=== PATIENT | female | born 1955 | race Caucasian/White ===

== ENCOUNTER 2017-10-24 15:09 | Inpatient (IN) | payer SELFPAY ==
[2017-10-24 15:42] LABS: ADD MAN DIFF? NO
[2017-10-24 15:47] LABS: WHITE BLOOD COUNT 6.9 10^3/ul (4.8-10.8)
[2017-10-24 15:47] LABS: BASOPHILS % 0.3 % (0.0-2.0); HEMOGLOBIN 13.5 g/dl (12.0-16.0); LYMPHOCYTES # 0.9 10^3/ul (0.8-2.9); LYMPHOCYTES % 12.4 % (15.0-51.0); MEAN CORPUSCULAR HEMOGLOBIN 30.7 pg (29.0-33.0); MEAN CORPUSCULAR HGB CONC 35.5 g/dl (32.0-37.0); MEAN CORPUSCULAR VOLUME 86.4 fl (82.0-101.0); MEAN PLATELET VOLUME 10.2 fl (7.4-10.4); MONOCYTE # 0.4 10^3/ul (0.3-0.9); MONOCYTES % 5.1 % (0.0-11.0); NEUTROPHIL # 5.7 10^3/ul (1.6-7.5); NEUTROPHILS % 81.8 % (39.0-77.0); PLATELET COUNT 204 10^3/UL (140-415)
[2017-10-24 16:04] LABS: ALANINE AMINOTRANSFERASE 34 IU/L (13-69); ALBUMIN 4.4 g/dl (3.3-4.9); ALBUMIN/GLOBULIN RATIO 1.41; ALKALINE PHOSPHATASE 76 IU/L (42-121); ANION GAP 17 (8-16); ASPARTATE AMINO TRANSFERASE 24 IU/L (15-46); BILIRUBIN,INDIRECT 0.6 mg/dl (0-1.1); BILIRUBIN,TOTAL 0.6 mg/dl (0.2-1.3); BLOOD UREA NITROGEN 15 mg/dl (7-20); CALCIUM 10.1 mg/dl (8.4-10.2); CARBON DIOXIDE 22 mmol/L (21-31); CHLORIDE 93 mmol/L (97-110); GLUCOSE 110 mg/dl (70-220); POTASSIUM 3.7 mmol/L (3.5-5.1); SODIUM 128 mmol/L (135-144); TOTAL PROTEIN 7.5 g/dl (6.1-8.1)
[2017-10-24 16:05] LABS: INR 0.98; PROTIME 13.1 Sec (11.9-14.9)
[2017-10-24 16:06] LABS: AMMONIA < 9 umol/l (9-30)
[2017-10-24 16:06] LABS: ETHANOL < 10.0 mg/dl; PARTIAL THROMBOPLASTIN TIME 34.4 Sec (25.0-35.0)
[2017-10-24 16:33] LABS: FREE THYROXINE INDEX (Calc) 4.48 ug/ml (0.65-3.89)
[2017-10-24 16:44] LABS: T3 UPTAKE 37.3 % (23.5-40.5)
[2017-10-24 16:46] LABS: TROPONIN-I < 0.012 ng/ml (0.00-0.12)
[2017-10-24] MEDS: ONDANSETRON 4 MG INJ IV (18:23)
[2017-10-24] MEDS ORDERED: ONDANSETRON 4 MG INJ IV ×2 (19:00→20:30)
[2017-10-24 19:42] LABS: ADD UMIC NO; UR ASCORBIC ACID NEGATIVE (NEGATIVE); UR BILIRUBIN (Dip) NEGATIVE (NEGATIVE); UR BLOOD (Dip) NEGATIVE (NEGATIVE); UR CLARITY CLEAR (CLEAR); UR COLOR YELLOW (YELLOW); UR GLUCOSE (Dip) NEGATIVE (NEGATIVE); UR KETONES (Dip) 2+ mg/dL (NEGATIVE); UR LEUKOCYTE ESTERASE (Dip) NEGATIVE Leu/ul (NEGATIVE); UR NITRITE (Dip) NEGATIVE (NEGATIVE); UR SPECIFIC GRAVITY (Dip) 1.046 (1.003-1.030); UR TOTAL PROTEIN (Dip) NEGATIVE (NEGATIVE); UR UROBILINOGEN (Dip) NEGATIVE (NEGATIVE)
[2017-10-24 20:00] LABS: BARBITURATES Positive (NEGATIVE)
[2017-10-24 20:02] LABS: AMPHETAMINE/METHAMPHETAMINE Negative (NEGATIVE); BENZODIAZEPINES Negative (NEGATIVE); CANNABINOIDS Negative (NEGATIVE); COCAINE Negative (NEGATIVE); OPIATES Negative (NEGATIVE)
[2017-10-24 20:06] LABS: SODIUM,URINE RANDOM 100 mmol/L (30-90)
[2017-10-24] MEDS ORDERED: NACL 0.9% 3 ML SYG IV (20:30)
[2017-10-24] MEDS ORDERED: ACETAMINOPHEN 325 MG TAB PO (20:30)
[2017-10-24] MEDS: SOD CHLORIDE 0.9% 1,000 ML IV (21:44)
[2017-10-24] MEDS: SOD CHLORIDE 0.9% 100 ML (21:45)
[2017-10-24] MEDS: IOHEXOL 100 ML (21:45)
[2017-10-24 22:41] LABS: OSMOLALITY,URINE 692 mOsm/kg (250-1200)
[2017-10-24 23:04] LABS: OSMOLALITY 265 mOsm/kg (280-295)
[2017-10-25] MEDS: ACETAMINOPHEN 325 MG TAB PO (01:21)
[2017-10-25] MEDS: SOD CHLORIDE 0.9% 1,000 ML IV ×2 (08:30→13:38)
[2017-10-25 08:52] LABS: ADD MAN DIFF? NO
[2017-10-25] MEDS: VALSARTAN 80 MG TAB PO (08:53)
[2017-10-25 08:59] LABS: WHITE BLOOD COUNT 4.5 10^3/ul (4.8-10.8)
[2017-10-25 08:59] LABS: BASOPHILS % 0.2 % (0.0-2.0); EOSINOPHILS % 0.4 % (0.0-7.0); HEMATOCRIT 35.9 % (37.0-47.0); HEMOGLOBIN 12.5 g/dl (12.0-16.0); LYMPHOCYTES # 1.3 10^3/ul (0.8-2.9); LYMPHOCYTES % 29.9 % (15.0-51.0); MEAN CORPUSCULAR HEMOGLOBIN 30.3 pg (29.0-33.0); MEAN CORPUSCULAR HGB CONC 34.8 g/dl (32.0-37.0); MEAN CORPUSCULAR VOLUME 87.1 fl (82.0-101.0); MEAN PLATELET VOLUME 10.7 fl (7.4-10.4); MONOCYTE # 0.5 10^3/ul (0.3-0.9); MONOCYTES % 10.5 % (0.0-11.0); NEUTROPHIL # 2.6 10^3/ul (1.6-7.5); NEUTROPHILS % 58.8 % (39.0-77.0); PLATELET COUNT 197 10^3/UL (140-415); RED BLOOD COUNT 4.12 10^6/ul (4.20-5.40); RED CELL DISTRIBUTION WIDTH 12.6 % (11.5-14.5)
[2017-10-25 10:10] LABS: ALANINE AMINOTRANSFERASE 27 IU/L (13-69); ALBUMIN 3.8 g/dl (3.3-4.9); ALBUMIN/GLOBULIN RATIO 1.15; ALKALINE PHOSPHATASE 59 IU/L (42-121); ANION GAP 13 (8-16); ASPARTATE AMINO TRANSFERASE 22 IU/L (15-46); BILIRUBIN,INDIRECT 0.6 mg/dl (0-1.1); BILIRUBIN,TOTAL 0.6 mg/dl (0.2-1.3); BLOOD UREA NITROGEN 13 mg/dl (7-20); CALCIUM 9.6 mg/dl (8.4-10.2); CARBON DIOXIDE 27 mmol/L (21-31); CHLORIDE 97 mmol/L (97-110); CHOL/HDL RATIO 4.5 RATIO; CHOLESTEROL 228 mg/dl (100-200); GLUCOSE 94 mg/dl (70-220); HDL CHOLESTEROL 50 mg/dl (35-98); LDL CHOLESTEROL,CALCULATED 165 mg/dl; POTASSIUM 3.4 mmol/L (3.5-5.1); SODIUM 134 mmol/L (135-144); TOTAL PROTEIN 7.1 g/dl (6.1-8.1); TRIGLYCERIDES 67 mg/dl (0-149)
[2017-10-25 10:16] LABS: FREE T4 (FREE THYROXINE) 1.09 ng/dl (0.78-2.44)
[2017-10-25 11:35] LABS: HEMOGLOBIN A1C 5.2 % (0-5.9)
[2017-10-25] MEDS: POTASSIUM CHLORIDE (SR) 10 MEQ TAB PO (16:47)
[2017-10-26] MEDS: SOD CHLORIDE 0.9% 1,000 ML IV (06:40)
[2017-10-26 06:43] LABS: ADD MAN DIFF? NO
[2017-10-26 06:52] LABS: BASOPHILS % 0.3 % (0.0-2.0); EOSINOPHILS # 0.1 10^3/ul (0.0-0.5); EOSINOPHILS % 1.5 % (0.0-7.0); HEMATOCRIT 36.4 % (37.0-47.0); HEMOGLOBIN 12.3 g/dl (12.0-16.0); LYMPHOCYTES # 1.5 10^3/ul (0.8-2.9); LYMPHOCYTES % 42.8 % (15.0-51.0); MEAN CORPUSCULAR HEMOGLOBIN 30.7 pg (29.0-33.0); MEAN CORPUSCULAR HGB CONC 33.8 g/dl (32.0-37.0); MEAN CORPUSCULAR VOLUME 90.8 fl (82.0-101.0); MEAN PLATELET VOLUME 10.6 fl (7.4-10.4); MONOCYTE # 0.4 10^3/ul (0.3-0.9); MONOCYTES % 11.7 % (0.0-11.0); NEUTROPHIL # 1.5 10^3/ul (1.6-7.5); NEUTROPHILS % 43.4 % (39.0-77.0); PLATELET COUNT 178 10^3/UL (140-415); RED BLOOD COUNT 4.01 10^6/ul (4.20-5.40); RED CELL DISTRIBUTION WIDTH 12.7 % (11.5-14.5)
[2017-10-26 06:52] LABS: WHITE BLOOD COUNT 3.4 10^3/ul (4.8-10.8)
[2017-10-26 07:24] LABS: ANION GAP 9 (8-16); BLOOD UREA NITROGEN 14 mg/dl (7-20); CALCIUM 9.3 mg/dl (8.4-10.2); CARBON DIOXIDE 29 mmol/L (21-31); CHLORIDE 106 mmol/L (97-110); CREATININE 0.78 mg/dl (0.44-1.00); GLUCOSE 79 mg/dl (70-220); POTASSIUM 4.1 mmol/L (3.5-5.1); SODIUM 140 mmol/L (135-144)
[2017-10-26 07:42] LABS: PHOSPHORUS 3.1 mg/dl (2.5-4.9)
[2017-10-26 07:42] LABS: MAGNESIUM 2.3 mg/dl (1.7-2.5)
[2017-10-26] MEDS: VALSARTAN 80 MG TAB PO (08:12)
[2017-10-26] MEDS: INFLUENZA VIRUS VACCINE 0.5 ML (DISPENSING) IM* (09:00)
[2017-10-26] MEDS ORDERED: hydrALAzine 20 MG INJ IV (21:00)
[2017-10-27 06:36] LABS: ADD MAN DIFF? NO
[2017-10-27 06:44] LABS: BASOPHILS % 0.8 % (0.0-2.0); EOSINOPHILS # 0.1 10^3/ul (0.0-0.5); EOSINOPHILS % 1.6 % (0.0-7.0); HEMATOCRIT 35.6 % (37.0-47.0); HEMOGLOBIN 12.2 g/dl (12.0-16.0); LYMPHOCYTES # 1.5 10^3/ul (0.8-2.9); LYMPHOCYTES % 40.5 % (15.0-51.0); MEAN CORPUSCULAR HGB CONC 34.3 g/dl (32.0-37.0); MEAN CORPUSCULAR VOLUME 90.6 fl (82.0-101.0); MEAN PLATELET VOLUME 10.6 fl (7.4-10.4); MONOCYTE # 0.4 10^3/ul (0.3-0.9); MONOCYTES % 10.3 % (0.0-11.0); NEUTROPHIL # 1.7 10^3/ul (1.6-7.5); NEUTROPHILS % 46.5 % (39.0-77.0); PLATELET COUNT 174 10^3/UL (140-415); RED BLOOD COUNT 3.93 10^6/ul (4.20-5.40); RED CELL DISTRIBUTION WIDTH 12.4 % (11.5-14.5)
[2017-10-27 06:44] LABS: WHITE BLOOD COUNT 3.7 10^3/ul (4.8-10.8)
[2017-10-27 07:13] LABS: ANION GAP 15 (8-16); BLOOD UREA NITROGEN 13 mg/dl (7-20); CALCIUM 9.6 mg/dl (8.4-10.2); CARBON DIOXIDE 28 mmol/L (21-31); CHLORIDE 105 mmol/L (97-110); CREATININE 0.71 mg/dl (0.44-1.00); GLUCOSE 84 mg/dl (70-220); POTASSIUM 3.9 mmol/L (3.5-5.1); SODIUM 144 mmol/L (135-144)
[2017-10-27 07:14] LABS: MAGNESIUM 2.4 mg/dl (1.7-2.5)
[2017-10-27 07:14] LABS: PHOSPHORUS 3.4 mg/dl (2.5-4.9)
[2017-10-27] MEDS: ASPIRIN (EC) 81 MG TAB PO (08:17)
[2017-10-27] MEDS: VALSARTAN 80 MG TAB PO (08:17)
[2017-10-27] MEDS ORDERED: ATORVASTATIN 80 MG TAB PO (21:00)
== END 2017-10-27 13:32 | disposition home or self-care (01) | DRG 92 ==
LOC: TEL 18:49 → E/R 15:09
DX: G92 Toxic encephalopathy (principal); E87.1 Hypo-osmolality and hyponatremia; I67.1 Cerebral aneurysm, nonruptured; G45.9 Transient cerebral ischemic attack, unspecified; E86.0 Dehydration; E78.5 Hyperlipidemia, unspecified; F41.9 Anxiety disorder, unspecified; I10 Essential (primary) hypertension
CPT/HCPCS: 36415; 70450; 70496; 70498; 70544; 70551; 71045; 80048; 80053; 80061; 80306; 80307; 81003; 82140; 82962; 83036; 83735; 83930; 83935; 84100; 84300; 84436; 84439; 84443; 84479; 84481; 84484; 85025; 85610; 85730; 90686; 92610; 93005; 93306; 96374; 97161; 97165; 99291-25